=== PATIENT | female | born 1985 | race African-American/Black ===

== ENCOUNTER 2021-09-02 15:49 | Emergency (ER) | payer MEDICAID ==
[~2021-09-02] VITALS: Ht 162.6 cm; Wt 77.0 kg
[2021-09-02] MEDS ORDERED: ACETAMINOPHEN 325MG TABLET PO ONE (16:15)
[2021-09-02] MEDS ORDERED: TETANUS, DIPHTHERIA, PERTUSSIS VAC/PF 0.5ML (>10YR OLD) IM ONE (16:15)
[2021-09-02] MEDS ORDERED: TOPUD MT (17:02)
[2021-09-02] MEDS ORDERED: CEPH500C2 MT (17:02)
[2021-09-02 17:27] VITALS: BP 145/65
[2021-09-02] MEDS ORDERED: BACITRACIN ZINC OINT UDPKT TOP NR (17:30)
[2021-09-02] MEDS ORDERED: BACITRACIN 15GM TUBE TOP ONE (17:30)
== END 2021-09-02 17:29 | disposition home or self-care (01) ==
LOC: ER 15:49
DX: S61.431A Puncture wound without foreign body of right hand, initial encounter (principal); D25.9 Leiomyoma of uterus, unspecified; X58.XXXA Exposure to other specified factors, initial encounter; Y93.89 Activity, other specified; Y92.810 Car as the place of occurrence of the external cause
CPT/HCPCS: 73130; 90471; 90715; 99283